=== PATIENT | female | born 1945 | race African-American/Black ===

== ENCOUNTER 2018-07-11 09:06 | Emergency (ER) | payer OTHER, BC ==
[2018-07-11 09:20] VITALS: BP 126/61; PULSE 74; TEMP 99.4; BMI 29.7
[2018-07-11] MEDS ORDERED: ACETAMINOPHEN 500 MG TABLET (FP) PO ONE (09:45)
--- NOTE | 2018-07-11 09:49 | PDOC ---
History of Present Illness - General Chief Complaint: Pain, Acute Stated Complaint: PAIN (PCP SENT) JAW PAIN Time Seen by Provider: 07/11/18 09:42 History Source: Patient Exam Limitations: No Limitations - History of Present Illness Initial Comments: 07/11/18 09:46 72 yr female with c/o left sided jaw pain woke up today with the pain, non radiating no chest pain no nausea no SOB. Pt states tender to touch. no recent dental work . Past History - Past Medical History Allergies/Adverse Reactions: Allergies Allergy/AdvReac Type Severity Reaction Status Date / Time No Known Allergies Allergy Verified 07/11/18 09:20 COPD: No Diabetes: Yes HTN: Yes - Surgical History Abdominal Surgery: (HERNIA REPAIR) - Suicide/Smoking/Psychosocial Hx Smoking History: Never smoked *Physical Exam - Vital Signs Last Vital Signs Temp Pulse Resp BP Pulse Ox 99.4 F 74 16 126/61 98 07/11/18 09:15 07/11/18 09:15 07/11/18 09:15 07/11/18 09:15 07/11/18 09:15 - Physical Exam General Appearance: Yes: Nourished, Appropriately Dressed HEENT: positive: EOMI, RENAN, TMs Normal, Pharynx Normal, Other (limited ROM of the jaw due to pain, TTP left mandible at the TMJ space, no abscess or swelling felt) Neck: positive: Supple. negative: Lymphadenopathy (R), Lymphadenopathy (L) Respiratory/Chest: positive: Lungs Clear, Normal Breath Sounds. negative: Chest Tender Cardiovascular: positive: Regular Rhythm, Regular Rate Neurologic: positive: Fully Oriented, Normal Response, Motor Strength 5/5 Heart Score/ECG Review - History History: Slightly suspicious - Age Age: >/= 65 - ECG Intrepretation Rhythm: Regular Rhythm - QRS Comment:: 07/11/18 12:02 prolonged QT - ST and T Prolonged Q-T Interval: Yes Comment:: 07/11/18 12:02 t wave abnormality ED Treatment Course - Consult/PCP Time Called: 10:24 Case discussed with personal care physician: Dean Mcdonnell Medical Decision Making - Medical Decision Making 07/11/18 09:48 cc: left jaw pain upon awakening today pt admits to grinding teeth pt believes she may have slept in wrong position last night painful eating her toast. no chest pain or nausea no arm pain pain is reproducable with palpation will give tylenol now and re-asess EKG was done in triage 07/11/18 10:24 discussed with patient's commanding officer motorized squad would like one troponin drawn EKG has been done pt has extensive cardiac history,NC with stents of note, pt feels better after tylenol *DC/Admit/Observation/Transfer Diagnosis at time of Disposition: Jaw pain - Discharge Dispostion Disposition: HOME Condition at time of disposition: Good - Referrals Referrals: Dean Mcdonnell MD [Staff Physician] - Nerissa Peña MD [Primary Care Provider] - - Patient Instructions Additional Instructions: please take tylenol for pain every 4-6hrs as needed follow with your dentist and with your primary care if symptoms continue or worsen return to ER as needed - Post Discharge Activity
[2018-07-11] MEDS ORDERED: ACETAMINOPHEN 500 MG TABLET (FP) ONE (09:59)
--- NOTE | 2018-07-11 11:33 | CON.CARD ---
Consult Consult Specialty:: cardiology Reason for Consultation:: hx VT-->multiple coronary stents; now with jaw pain - History of Present Illness History of Present Illness: 72 yr old woman with PMHx VT-->motliple coronary stents and ICD; HTN; DM; systolic/diastolic CHF, ESRD-->hemodialysis, obesity, sedentary, anxiety/ depression, - History Source History Provided By: Patient, Family Member, Medical Record Limitations to Obtaining History: No Limitations - Smoking History Smoking history: Never smoked Home Medications - Allergies Allergies/Adverse Reactions: Allergies Allergy/AdvReac Type Severity Reaction Status Date / Time No Known Allergies Allergy Verified 07/11/18 09:20 Vital Signs: Vital Signs Temperature 99.4 F 07/11/18 09:15 Pulse Rate 74 07/11/18 09:15 Respiratory Rate 16 07/11/18 09:15 Blood Pressure 126/61 07/11/18 09:15 O2 Sat by Pulse Oximetry (%) 98 07/11/18 09:15 Problem List - Problems (1) Stented coronary artery Assessment/Plan: TNI serially. EKG. If TNI is negative, pt may be followed as oupatient from cardiac perspective. Code(s): Z95.5 - PRESENCE OF CORONARY ANGIOPLASTY IMPLANT AND GRAFT
--- NOTE | 2018-07-11 11:47 | EKG ---
Test Reason : Blood Pressure : / mmHG Vent. Rate : 074 BPM Atrial Rate : 074 BPM P-R Int : 192 ms QRS Dur : 114 ms QT Int : 462 ms P-R-T Axes : 010 018 100 degrees QTc Int : 512 ms NORMAL SINUS RHYTHM ABNORMAL QRS-T ANGLE, CONSIDER PRIMARY T WAVE ABNORMALITY PROLONGED QT ABNORMAL ECG NO PREVIOUS ECGS AVAILABLE Confirmed by JUWAN BENJAMIN MD ([id number]) on 07/11/2018 11:47:10 AM Referred By: Confirmed By:JUWAN BENJAMIN MD
== END 2018-07-11 12:09 | disposition home or self-care (01) ==
LOC: JERFT 09:06
DX: R68.84 Jaw pain (principal); I25.10 Atherosclerotic heart disease of native coronary artery without angina pectoris; Z95.5 Presence of coronary angioplasty implant and graft; I10 Essential (primary) hypertension; E11.9 Type 2 diabetes mellitus without complications
CPT/HCPCS: 36415; 82550; 84484; 93005; 93010; 99281-25